=== PATIENT | female | born 1945 ===

== ENCOUNTER 2020-04-09 06:12 | Day surgery (SDC) | payer OTHER ==
[~2020-04-09] VITALS: Ht 147.3 cm; Wt 57.1 kg
[2020-04-09 06:50] VITALS: BP 116/60
[2020-04-09 10:20] VITALS: BP 101/42
== END 2020-04-09 10:15 | disposition home or self-care (01) ==
LOC: DS 06:12 → OR 07:30 → GI 07:30 → DS 10:15
DX: R19.7 Diarrhea, unspecified (principal); K57.30 Diverticulosis of large intestine without perforation or abscess without bleeding
CPT/HCPCS: 45378; J1200; J1610; J2250; J2310; J3010; J3490